=== PATIENT | female | born 1945 | race Caucasian/White ===

== ENCOUNTER 2018-07-28 09:58 | Observation (INO) ==
[2018-07-28] MEDS ORDERED: LACTATED RINGERS 1,000 ML IV ONE (10:11)
[2018-07-28] MEDS ORDERED: ONDANSETRON 4 MG/2 ML VIAL IV ONE (10:11)
--- NOTE | 2018-07-28 10:13 | Emergency Department Note ---
Nausea/Vomiting/Diarrhea HPI - General Chief complaint: Nausea/Vomiting/Diarrhea Stated complaint: n/v/d x 4 days Time Seen by Provider: 07/28/18 10:09 Source: patient Mode of arrival: wheelchair Limitations: no limitations - History of Present Illness HPI Narrative: This patient has problems with chronic diarrhea but is gotten worse recently and is associated with nausea vomiting and abdominal cramping. Imodium is not helping. Diarrhea is watery without blood or mucus. She did have colonoscopy a month ago and had some polyps removed. Her abdominal pain is diffuse and crampy in nature. - Related Data Home Medications Medication Instructions Recorded Confirmed loperamide 2 mg capsule 4 mg PO .COMPLEX PRN cap 02/21/15 07/28/18 loratadine 10 mg tablet 10 mg PO QDAY PRN 02/21/15 07/28/18 acetaminophen ER 650 mg 650 mg PO .COMPLEX PRN tab 04/22/16 07/28/18 tablet,extended release Previous Rx's Medication Instructions Recorded furosemide 20 mg tablet 20 mg PO .QOD #60 tab 12/02/17 lorazepam 0.5 mg tablet 0.5 mg PO QDAY PRN #14 tab 12/23/17 losartan 100 mg tablet 100 mg PO QDAY #90 tab 04/13/18 hydralazine 25 mg tablet 50 mg PO BID #120 tab 06/03/18 metoprolol tartrate 100 mg tablet 100 mg PO BID #90 tab 06/08/18 bupropion HCl XL 300 mg 24 hr 300 mg PO QAM #90 tab 06/16/18 tablet, extended release Allergies Allergy/AdvReac Type Severity Reaction Status Date / Time amlodipine Allergy Unknown Ankle Verified 07/28/18 10:02 Swelling hydrochlorothiazide Allergy Unknown Hyponatremi Verified 07/28/18 10:02 a Review of Systems All systems ED: reviewed and negative except as stated. Past Medical History - Past Medical History PMF Narrative: Medical History (Last Reviewed 06/30/18 @ 10:44 by Jerel Lundy MD) Localized edema due to fluid overload (Chronic) Secondary hyperparathyroidism of renal origin (Chronic) Vitamin D deficiency (Chronic) Benign hypertension with CKD (chronic kidney disease) stage III (Chronic) CKD (chronic kidney disease) stage 3, GFR 30-59 ml/min (Chronic) Urge incontinence (Chronic) Atypical chest pain (Acute) Metabolic acidosis (Chronic) History of colorectal cancer (Chronic) Hypercholesterolemia (Chronic) H/O: hysterectomy (Chronic) Gastroesophageal reflux (Chronic) Kidney stones (Chronic) Anxiety (Chronic) Depression (Chronic) Osteoarthritis (Chronic) Past Surgical History (Last Reviewed 06/30/18 @ 10:44 by Jerel Lundy MD) History of knee replacement (Chronic) History of lumpectomy of left breast (Chronic) History of cholecystectomy (Chronic) Hx of appendectomy (Chronic) History of colon resection (Chronic ~1998) Family History (Last Reviewed 06/30/18 @ 10:44 by Jerel Lundy MD) Grandfather-maternal Arthritis Essential hypertension Cerebrovascular accident (CVA) Tuberculosis Mother Essential hypertension Brothers Essential hypertension Father Alcoholism Hypertension Medical history: Reports: hypertension Surgical history ED: Reports: appendectomy, cholecystectomy, colostomy, hysterectomy, JULIAN/BSO - Social History smoking status: Never smoker Alcohol use: Reports: None Physical Exam Limitations: no limitations General appearance: alert Head: atraumatic Eye: Present: normal appearance ENT: normal exam Neck: Present: normal inspection Chest: Present: normal inspection Respiratory: Present: normal lung sounds bilaterally Cardiovascular: Present: regular rate, normal rhythm, normal heart sounds Abdominal: Present: soft, tenderness. Absent: distention, guarding, rebound Abdominal tenderness: Present: diffuse, mild Neurological: Present: alert Psychiatric: Present: normal affect Skin: Present: warm Course Vital Signs Temperature 97.4 F 07/28/18 09:59 Pulse Rate 110 H 07/28/18 09:59 Respiratory Rate 20 07/28/18 09:59 Blood Pressure 154/108 07/28/18 09:59 Pulse Oximetry (%) 99 07/28/18 09:59 Temperature 97.4 F 07/28/18 09:59 Pulse Rate 80 07/28/18 14:21 Respiratory Rate 20 07/28/18 09:59 Blood Pressure 161/109 07/28/18 14:02 Pulse Oximetry (%) 98 07/28/18 14:21 Nausea/Vomiting/Diarrhea - MDM Narrative Medical decision making narrative: CT shows mechanical partial small bowel obstruction. The patient will be admitted to the hospital by Dr. Pina. - Lab Data Lab results reviewed: Yes I reviewed the patient's lab results. Result diagrams: 07/28/18 10:10 07/28/18 10:10 Lab Results 07/28/18 07/28/18 Range/Units 10:10 10:10 WBC 4.8 (4.5-11.0) K/mcL RBC 4.92 (4.00-5.20) M/mcL Hgb 14.4 (12.0-15.0) g/dL Hct 43.7 (36.0-48.0) % MCV 88.7 (80.0-100.0) fL MCH 29.3 (26.0-34.0) pg MCHC 33.1 (31.0-36.0) g/dL RDW 13.8 (11.5-14.5) % Plt Count 267 (140-440) K/mcL MPV 8.8 (7.4-10.4) fL Gran % 71.0 (38.0-78.0) % Lymph % (Auto) 15.9 (15.5-49.0) % [place] % (Auto) 11.6 (1.0-12.0) % Eos % (Auto) 1.2 (0.0-7.0) % Baso % (Auto) 0.3 (0.0-2.0) % Gran # 3.4 (1.8-8.0) K/mcL Lymph # (Auto) 0.8 L (1.5-4.8) K/mcL [place] # (Auto) 0.6 (0.1-0.9) K/mcL Eos # (Auto) 0.1 (0.0-0.7) K/mcL Baso # (Auto) 0 (0.0-0.3) K/mcL Sodium 136 (133-145) mmol/L Potassium 4.3 (3.3-5.1) mmol/L Chloride 101 (96-108) mmol/L Carbon Dioxide 19 L (22-30) mmol/L Anion Gap 16.0 (8-16) BUN 34 H (8-23) mg/dl Creatinine 1.9 H (0.6-1.1) mg/dl GFR Calculation 26 Glucose 124 H (70-105) mg/dL Calcium 9.8 (8.6-10.4) mg/dl Total Bilirubin 0.5 (0.0-1.0) mg/dL AST 20 (0-37) U/l ALT 34 (0-40) U/l Alkaline Phosphatase 123 H (39-117) U/L Total Protein 7.4 (5.9-8.4) gm/dL Albumin 4.2 (3.2-5.2) gm/dL Globulin 3.2 (2.2-3.7) gm/dL Albumin/Globulin Ratio 1.3 (1.0-2.3) - Radiology Data Radiology results reviewed: Yes I reviewed the patient's radiology results. Disposition Pt seen by HEALTH THERAPIST/PA only: No Clinical Impression: Small bowel obstruction Disposition: Xfer As Outpt/Obs ([facility]) Condition: Good Referrals: Jerel Lundy MD [Primary Care Provider] - Time of Disposition: 15:06
[2018-07-28] MEDS: HYDROmorphone 2 MG/ML VIAL IV PRN ×2 (10:28→14:03)
[2018-07-28 11:06] LABS: Basophils # (Auto) 0 K/mcL (0.0-0.3); Basophils % (Auto) 0.3 % (0.0-2.0); Eosinophils # (Auto) 0.1 K/mcL (0.0-0.7); Eosinophils % (Auto) 1.2 % (0.0-7.0); Lymphocytes # (Auto) 0.8 K/mcL (1.5-4.8); Lymphocytes % (Auto) 15.9 % (15.5-49.0); Mean Cell Volume 88.7 fL (80.0-100.0); Mean Corpuscular HGB Conc 33.1 g/dL (31.0-36.0); Monocytes # (Auto) 0.6 K/mcL (0.1-0.9); Monocytes % (Auto) 11.6 % (1.0-12.0); Platelet Count 267 K/mcL (140-440); RBC 4.92 M/mcL (4.00-5.20); Red Cell Distribution Width 13.8 % (11.5-14.5)
[2018-07-28 11:29] LABS: ALT/SGPT 34 U/l (0-40); Albumin 4.2 gm/dL (3.2-5.2); Albumin/Globulin Ratio 1.3 (1.0-2.3); Alkaline Phosphatase 123 U/L (39-117); Blood Urea Nitrogen 34 mg/dl (8-23)
[2018-07-28] MEDS ORDERED: 0.9 % SODIUM CHLORIDE 1,000 ML IV ONE (11:52)
[2018-07-28] MEDS ORDERED: LORazepam 2 MG/ML VIAL IV ONE (13:52)
--- NOTE | 2018-07-28 14:39 | Cat Scan Report ---
CLINICAL INFORMATION: History of rectal cancer. Previous hysterectomy, cholecystectomy, appendectomy. Abdominal pain. COMPARISON: Previous abdominal MRI scan dated 03/08/2016. Previous CT scans dated 03/16/2014, 10/09/2012, 10/07/2011, 03/13/2011 TECHNIQUE: Axial images were obtained through the abdomen and pelvis. Sagittally and coronally reformatted images. Oral contrast material was administered. Venous contrast material was not given FINDINGS: Partial mechanical small bowel obstruction. Jejunum and a portion of the ileum are dilated. There is a transition point in the right lower quadrant which corresponds in location to an anastomotic suture line and entero-entero anastomosis.. There is mild small bowel feces sign. Small bowel obstruction does not appear complete. There is fecal material and gas within the colon. There is no pneumoperitoneum. No biliary or portal venous gas. No pneumatosis. Stomach is mildly distended and contains contrast material. Lung bases are negative. No focal consolidation. No pleural effusion. No pericardial effusion. Liver is negative for limits of noncontrast enhanced examination. There are surgical clips in the gallbladder fossa. No dilated bile ducts. Pancreas is negative. No pancreatic mass. No peripancreatic abnormality. Spleen is negative. There are calcifications consistent with granulomatous disease. Negative adrenal glands. Kidneys are negative to the limits of noncontrast enhanced examination. No hydronephrosis or hydroureter. No bladder calculus. Uterus is been removed. No adnexal mass. There is no free intraperitoneal fluid. No pneumatosis. No biliary or portal venous gas. There is no pathologic retroperitoneal or mesenteric adenopathy. Abdominal aorta is calcified. No abdominal aortic aneurysm. Celiac trunk and superior mesenteric artery appear normal. There is mild calcification but no evidence for stenosis Lumbar spine is negative. No compression deformities. The common pelvis are negative. IMPRESSION: 1. Findings consistent with partial mechanical small bowel obstruction. Transition point is in the right lower quadrant and appears to correspond in location to an anastomotic suture line within the small bowel. 2. No other acute intra-abdominal abnormality. The exam was performed using radiation dose optimization techniques including, but not limited to, automated exposure control, adjustment of the mA and/or kV according to patient size and use of iterative reconstruction technique. Interpreted and Authenticated by: Jeremy Brower 07/28/18
--- NOTE | 2018-07-28 17:22 | General Surg History&Physical ---
History of Present Illness Patient information: Note initiated : 07/28/18 at 5:19 pm Service Date, if different from initiated Date: [] Patient: Kay Blank 73 y/o F admitted on 07/28/18 for n/v/d x 4 days. Chief Complaint: [] HPI: Ms. Blank is a 73 year old F admitted for treatment of diarrhea with severe nausea and vomiting. The patient states that she has a 5 day history of profuse diarrhea with diarrhea stools up to 10 times per day. 2 days ago she developed nausea and vomiting and had multiple episodes of severe crampy mid abdominal pain followed by nausea and vomiting. The pain nausea and vomiting is worse after meals. Because of episodic diarrhea and prior history of colon rectal cancer She had colonoscopy 3 weeks ago. She reports that she had 6 polyps removed at that time. The patient states that she had colorectal resection for rectal cancer in 2009. She had it a protective ileostomy which was reversed about 4 months later. Since that time she has had periods of episodic diarrhea which she is controlled with when necessary Imodium. She denies fever or chills. She denies rectal bleeding. She does not think that there is a temporal relationship between the also of diarrhea and her colonoscopy. Review of Systems - Constitutional fatigue, malaise, weakness, weight gain - EENT Nose, mouth and throat: no dizziness, no headache(s) - Cardiovascular no chest pain, no claudication, no dyspnea on exertion, no palpatations, no rapid heart rate, no syncope - Respiratory no cough, no wheezing, no snoring, no chest congestion - Gastrointestinal abdominal pain, belching, bloating, cramping, diarrhea, excessive flatus, loose stools, nausea, vomiting - Genitourinary Genitourinary: no dysuria, no urinary frequency, no urinary hesitancy, no urinary incontinence, no urinary urgency - Musculoskeletal abnormal gait, joint swelling, no back pain, no stiffness - Integumentary no pruritus, no rash - Neurological weakness, no abnormal hearing, no dizziness, no headache(s), no syncope, no vertigo - Psychiatric no anxiety, no depression - Endocrine fatigue, no palpitations - Hematologic/Lymphatic no easy bleeding, no easy bruising, no lymphadenopathy - Allergic/Immunologic no tongue swelling, no throat swelling, no uticaria, no wheezing, no lip swelling Past History Past medical history: History of colorectal cancer. Chronic kidney disease. History of recurrent colon polyps. Hypertension. Gastroesophageal reflux disease. Depression Past surgical history: Left total knee arthroplasty 2007 Colorectal resection for rectal cancer 2010 Cholecystectomy. Hysterectomy Appendectomy. Left breast biopsy. Ileostomy closure Past family history: Hypertension and stroke Past social history: Denies tobacco , use denies alcohol use Denies drug use Medications and Allergies Home Medications Medication Instructions Recorded Confirmed Type loperamide 2 mg capsule 4 mg PO .COMPLEX PRN cap 02/21/15 07/28/18 History loratadine 10 mg tablet 10 mg PO QDAY PRN 02/21/15 07/28/18 History acetaminophen ER 650 mg 650 mg PO .COMPLEX PRN tab 04/22/16 07/28/18 History tablet,extended release furosemide 20 mg tablet 20 mg PO .QOD #60 tab 12/02/17 07/28/18 Rx lorazepam 0.5 mg tablet 0.5 mg PO QDAY PRN #14 tab 12/23/17 07/28/18 Rx losartan 100 mg tablet 100 mg PO QDAY #90 tab 04/13/18 07/28/18 Rx hydralazine 25 mg tablet 50 mg PO BID #120 tab 06/03/18 07/28/18 Rx metoprolol tartrate 100 mg tablet 100 mg PO BID #90 tab 06/08/18 07/28/18 Rx bupropion HCl XL 300 mg 24 hr 300 mg PO QAM #90 tab 06/16/18 07/28/18 Rx tablet, extended release Allergies Allergy/AdvReac Type Severity Reaction Status Date / Time amlodipine Allergy Unknown Ankle Verified 07/28/18 10:02 Swelling hydrochlorothiazide Allergy Unknown Hyponatremi Verified 07/28/18 10:02 a Exam Temp Pulse Resp BP Pulse Ox 98.0 F 85 22 146/82 95 07/28/18 16:00 07/28/18 16:00 07/28/18 16:00 07/28/18 16:00 07/28/18 16:00 - General physical appearance well developed, well nourished, no distress - Eyes PERRL, normal ocular movement - ENT normal pinna, normal nares, normal mucosa, no hearing loss, no congestion - Head Head exam IM: Present: atraumatic, normocephalic - Neck no masses, no bruits, trachea midline, no lymphadenopathy, no venous distension - Cardiovascular Cardiovascular exam IM: Present: normal rate and rhythm, JVD, RRR, +S1, +S2. Absent: irregular rhythm, systolic murmur, tachycardia - Respiratory normal expansion, normal respiratory effort, clear to auscultation - Abdomen Abdomen: Present: soft, non tender, tender (mild diffuse midabdominal tenderness; good active bowel sounds; no palpable mass or guarding), bowel sounds Hernia: Present: none - Genitourinary Present: normal external genitalia - Integumentary Present: no rash, no growths, no abnormal pigmentation - Neurologic Present: normal coordination, normal sensation - Musculoskeletal Present: normal gait, normal posture, other (. Operative changes left knee) - Psychiatric Present: oriented to time, oriented to person, oriented to place, speech is normal, memory intact Assessment and Plan (1) Acute infectious diarrhea Patient has associated adynamic ileus rather than intestinal obstruction . Dicyclomine 20 mg 4 times daily stool for C. difficile. Clear liquid diet . Erythrocyte sedimentation rate , Zosyn 3.375 g IV every 6. Hours Status: Acute (2) Acute kidney injury superimposed on chronic kidney disease IV hydration with normal saline Status: Acute (3) Depression Status: Chronic Qualifiers: Depression Type: major depressive disorder Major depression recurrence: recurrent Active/Remission status: in full remission Qualified Code(s): F33.42 - Major depressive disorder, recurrent, in full remission (4) Osteoarthritis Status: Chronic Qualifiers: Osteoarthritis location: unspecified site Osteoarthritis type: unspecified Qualified Code(s): M19.90 - Unspecified osteoarthritis, unspecified site
[2018-07-28] MEDS ORDERED: PROMETHAZINE 25 MG/ML VIAL IV PRN (17:33)
[2018-07-28] MEDS ORDERED: oxyCODONE HCL 5 MG TABLET PO PRN (17:33)
[2018-07-28] MEDS ORDERED: ONDANSETRON 4 MG/2 ML VIAL IV PRN (17:33)
[2018-07-28] MEDS: 0.9 % SODIUM CHLORIDE 1,000 ML IV SCH (18:10)
[2018-07-28] MEDS: metroNIDAZOLE 500 MG/100 ML BAG IV SCH (18:10)
[2018-07-28] MEDS: DICYCLOMINE 20 MG TABLET PO SCH ×2 (18:12→23:48)
[2018-07-28] MEDS: PIPERACILLIN SODIUM/TAZOBACTAM 2.25 GM in DEXTROSE 5% IN WATER 50 ML IV SCH ×2 (19:19→23:48)
[2018-07-28 23:58] LABS: Appearance,Urine HAZY; Bacteria,Urine FEW /hpf (0); Bilirubin,Urine NEG (NEG); Color,Urine YELLOW; Glucose,Urine (UA) NEGATIVE (NEG); Leukocyte Esterase,Urine 250 /uL (NEG); Mucus,Urine MOD /hpf (0); Protein,Urine NEG (NEG); Specific Gravity,Urine 1.019 (1.000-1.035); Urine Blood 0.03 mg/dL (<0.03); Urine RBC 6 /hpf (0-1); Urine Squamous Epithelial Cell 4 /hpf (0-4); Urine WBC 12 /hpf (0-4); Urobilinogen,Urine NEG (NEG)
[2018-07-29] MEDS: 0.9 % SODIUM CHLORIDE 1,000 ML IV SCH ×3 (00:52→16:54)
[2018-07-29] MEDS: metroNIDAZOLE 500 MG/100 ML BAG IV SCH ×3 (00:52→11:58)
[2018-07-29] MEDS: PIPERACILLIN SODIUM/TAZOBACTAM 2.25 GM in DEXTROSE 5% IN WATER 50 ML IV SCH ×4 (04:52→23:22)
--- NOTE | 2018-07-29 06:33 | XRay Report ---
CLINICAL INFORMATION: History of mechanical small bowel obstruction. Follow-up TECHNIQUE: Supine and upright abdomen COMPARISON: Previous CT scan dated 07/28/2018 FINDINGS: Markedly improved bowel gas pattern. There is gas and contrast material within the colon. There is some persistent mildly distended gas-filled small bowel in the left side of the abdomen. There are multiple surgical clips in the right upper quadrant and left upper quadrant. No free intraperitoneal air. No biliary or portal venous gas. No pneumatosis. IMPRESSION: Improved bowel gas pattern with increased gas and contrast material in the colon Interpreted and Authenticated by: Jeremy Brower 07/29/18
[2018-07-29] MEDS: PANTOPRAZOLE 40 MG VIAL IV SCH ×2 (07:42→16:50)
[2018-07-29] MEDS: DICYCLOMINE 20 MG TABLET PO SCH ×4 (09:25→20:50)
[2018-07-29] MEDS ORDERED: hydrALAZINE 25 MG TABLET PO SCH ×2 (11:42→21:00)
[2018-07-29] MEDS ORDERED: LOSARTAN 50 MG TABLET PO SCH (11:45)
[2018-07-29] MEDS: METOPROLOL TARTRATE 50 MG TABLET PO SCH ×2 (11:57→20:49)
--- NOTE | 2018-07-29 13:00 | General Surgery Progress Note ---
Subjective Patient reports: feels better, pain is less, tolerating liquids well, flatus, bowel movement, diarrhea, afebrile Narrative: Note initiated : 07/29/18 at 12:57 pm Service Date, if different from initiated Date: [] Patient: Kay Blank 73 y/o F admitted on 07/28/18 for n/v/d x 4 days. Chief Complaint: [patient is improved. She has had some somatoform bowel movements. She has less abdominal distention. She has good active bowel sounds.C. difficile is negative; fecal leukocytes are negative.] Objective Temp Pulse Resp BP Pulse Ox 97.7 F 86 18 165/95 97 07/29/18 11:34 07/29/18 11:34 07/29/18 11:34 07/29/18 11:34 07/29/18 11:34 - Additional Data Intake & Output - Last 24 hours: Intake & Output 07/27/18 07/28/18 07/29/18 07/30/18 05:59 05:59 05:59 05:59 Intake Total 2550 100 Output Total 625 500 Balance 1925 -400 Weight 289 lb 12.8 oz - General physical appearance well developed, well nourished, no distress - Eyes PERRL, normal ocular movement - ENT normal pinna, normal nares, normal mucosa, no hearing loss, no congestion - Neck no masses, no bruits, trachea midline, no lymphadenopathy, no venous distension - Respiratory normal expansion, normal respiratory effort, clear to auscultation - Cardiovascular Cardiovascular exam: Present: normal rate and rhythm, RRR, +S1, +S2. Absent: tachycardia - Abdomen non tender, bowel sounds (good active bowel sounds; no significant tenderness; no distention noted.), surgical scars (none), masses (none) - Integumentary no rash, no growths, no abnormal pigmentation - Neurologic normal coordination, normal sensation - Musculoskeletal normal gait, normal posture - Psychiatric oriented to time, oriented to person, oriented to place, speech is normal, memory intact - Labs 07/28/18 10:10 07/28/18 10:10 Assessment and Plan (1) Acute infectious diarrhea Status: Acute Assessment and plan: Discontinue antibiotics. Soft diet. Follow-up abdominal x-rays in the morning Current Visit: Yes (2) Acute kidney injury superimposed on chronic kidney disease Status: Resolved Assessment and plan: Check the chem panel in the morning Current Visit: Yes (3) Depression Status: Chronic Assessment and plan: Restart oral medications Current Visit: No (4) Osteoarthritis Status: Chronic Current Visit: No - Time Spent With Patient Total time spent is greater than 50% in coordination of care (as documented) at patient's floor/unit and/or counseling patient:
[2018-07-29] MEDS ORDERED: LORazepam 0.5 MG TABLET PO PRN (13:07)
[2018-07-29] MEDS ORDERED: LORATADINE 10 MG TABLET PO PRN (13:07)
[2018-07-29] MEDS: hydrALAZINE 25 MG TABLET PO SCH (20:50)
[2018-07-29] MEDS ORDERED: METOPROLOL TARTRATE 100 MG PO SCH (21:00)
[2018-07-29] MEDS ORDERED: METOPROLOL TARTRATE 50 MG TABLET PO SCH (21:00)
[2018-07-30] MEDS: 0.9 % SODIUM CHLORIDE 1,000 ML IV SCH ×2 (00:35→05:31)
[2018-07-30] MEDS: PIPERACILLIN SODIUM/TAZOBACTAM 2.25 GM in DEXTROSE 5% IN WATER 50 ML IV SCH ×2 (05:31→13:49)
[2018-07-30 06:07] LABS: Basophils # (Auto) 0 K/mcL (0.0-0.3); Basophils % (Auto) 0.5 % (0.0-2.0); Eosinophils # (Auto) 0.1 K/mcL (0.0-0.7); Eosinophils % (Auto) 3.1 % (0.0-7.0); Granulocytes % (Auto) 66.1 % (38.0-78.0); Lymphocytes # (Auto) 0.9 K/mcL (1.5-4.8); Mean Cell Volume 90.6 fL (80.0-100.0); Mean Corpuscular HGB Conc 33.1 g/dL (31.0-36.0); Monocytes # (Auto) 0.5 K/mcL (0.1-0.9); Monocytes % (Auto) 10.3 % (1.0-12.0); Platelet Count 185 K/mcL (140-440); RBC 3.98 M/mcL (4.00-5.20); Red Cell Distribution Width 13.9 % (11.5-14.5)
[2018-07-30 06:15] LABS: ALT/SGPT 37 U/l (0-40); Albumin 3.4 gm/dL (3.2-5.2); Albumin/Globulin Ratio 1.4 (1.0-2.3); Alkaline Phosphatase 96 U/L (39-117); Bilirubin,Direct < 0.2 mg/dL (0.0-0.3); Blood Urea Nitrogen 15 mg/dl (8-23); Gamma Glutamyl Transpeptidase 45 U/L (5-36); Uric Acid 5.7 mg/dL (2.5-8.0)
[2018-07-30] MEDS: PANTOPRAZOLE 40 MG VIAL IV SCH (07:08)
--- NOTE | 2018-07-30 07:44 | XRay Report ---
CLINICAL INFORMATION: History of partial mechanical small bowel obstruction TECHNIQUE: Supine and upright abdomen COMPARISON: Previous CT scan dated 07/28/2018. Previous plain film examination dated 07/29/2018 FINDINGS: Gas within the colon. Nondilated gas filled small bowel. No evidence for obstruction. Bowel gas pattern is unremarkable. There are surgical clips in the right upper abdominal quadrant. There are also surgical clips in the left upper quadrant. No pneumoperitoneum. No biliary or portal venous gas. No pneumatosis. IMPRESSION: 1. Unremarkable and nonobstructive bowel gas pattern 2. Interval improvement since 07/28/2018 Interpreted and Authenticated by: Jeremy Brwoer 07/30/18
[2018-07-30] MEDS ORDERED: NEUTRA PHOS 1 PACKET PO ONE (08:42)
[2018-07-30] MEDS: METOPROLOL TARTRATE 50 MG TABLET PO SCH (08:43)
[2018-07-30] MEDS: DICYCLOMINE 20 MG TABLET PO SCH ×2 (08:43→13:48)
[2018-07-30] MEDS: hydrALAZINE 25 MG TABLET PO SCH (08:43)
[2018-07-30] MEDS ORDERED: buPROPion 150 MG TAB.XL.24H PO SCH (09:00)
[2018-07-30] MEDS ORDERED: LOSARTAN 50 MG TABLET PO SCH ×2 (09:00)
[2018-07-30] MEDS ORDERED: buPROPion 300 MG TAB.XL.24H PO SCH (09:00)
--- NOTE | 2018-07-30 15:12 | Discharge Summary ---
Providers - Providers Patient information: Note initiated : 07/30/18 at 3:11 pm Service Date, if different from initiated Date: [] Patient: Kay Blank 73 y/o F admitted on 07/28/18 for n/v/d x 4 days. Chief Complaint: [] Date of admission: 07/28/18 Discharge date: 07/30/18 Attending physician: Steffen Pina Hospitalization Hospital course: 73-year-old female admitted for treatment of severe nausea, vomiting, diarrhea. She presented with a five-day history of present profuse diarrhea with up to 12 diarrheal stools per day. 2 days prior to admission she developed nausea and vomiting and had multiple recurrent episodes of severe crampy mid abdominal pain followed by nausea, vomiting and diarrhea. Her nausea and vomiting became worse after meals. She has had episodic diarrhea in the past had a colonoscopy 3 weeks prior to admission and that was unremarkable except for small polyps. She has a history of rectal cancer status post chemoradiation and resection without any difficulty. Patient presented with evidence of acute kidney injury with BUN of 34 and creatinine 1.9. She was started on dicyclomine 20 mg 4 times daily. Stool for C. difficile was negative.her BUN and creatinine returned to normal with hydration. Her diet was advanced and she had semisolid stools without diarrhea. Her abdominal crampy pain resolved. She has clinically stable at this time and is discharged home. Discharge diagnosis: acute noninfectious diarrhea Secondary discharge diagnosis: Acute on chronic renal failure. Chronic depression. Osteoarthritis. Hypertension Reason for admission: uncontrolled diarrhea and dehydration Procedures: None Pertinent studies/significant findings: CT of abdomen and pelvis without contrast Complications: None Exam Temp Pulse Resp BP Pulse Ox 98.6 F 76 18 192/89 95 07/30/18 11:16 07/30/18 11:16 07/30/18 11:16 07/30/18 11:16 07/30/18 11:16 - General physical appearance well developed, well nourished, no distress - Eyes PERRL, normal ocular movement - ENT normal pinna, normal nares, normal mucosa, no hearing loss, no congestion - Head Head exam IM: Present: atraumatic, normocephalic - Neck no masses, no bruits, trachea midline, no lymphadenopathy, no venous distension - Cardiovascular Cardiovascular exam IM: Present: normal rate and rhythm - Respiratory normal expansion, normal respiratory effort, clear to percussion, clear to a uscultation - Abdomen Abdomen: Present: soft, non tender, bowel sounds. Absent: masses, distended Hernia: Present: none - Genitourinary Present: normal external genitalia - Integumentary Present: no rash, no growths, no abnormal pigmentation - Neurologic Present: normal coordination, normal sensation - Musculoskeletal Present: normal gait, normal posture - Psychiatric Present: oriented to time, oriented to person, oriented to place, speech is normal, memory intact Discharge Plan - Patient/Caregiver Discharge Instructions Activity: increase activity as tolerated Diet: Regular Diet Additional Instructions: Multiple small meals per day Prescriptions: RX: Dicyclomine 20 mg PO QID #60 tab - Follow up Plan Follow up with: Jerel Lundy MD [Primary Care Provider] - Disposition: Home, Self-Care Prognosis: Good Rehab Potential: Good (she is supported) I certify that the patient requires SNF services.: No Overall status at discharge: patient is progressing back to baseline Pending Studies Resuscitation Status Full Code Diet GI Soft/Transitional Start FriJuly 29 1307 Bupropion HCl (Wellbutrin Xl) 300 mg PO DAILY [facility] Last Admin: 07/30/18 08:43 Dose: 300 mg Documented by: Srinivas Dicyclomine HCl (Dicyclomine) 20 mg PO QID [facility] Admin: 07/30/18 13:48 Dose: 20 mg Documented by: Srinivas Admin: 07/30/18 08:43 Dose: 20 mg Documented by: Admin: 07/29/18 20:50 Dose: 20 mg Documented by: Admin: 07/29/18 16:51 Dose: 20 mg Documented by: Admin: 07/29/18 13:20 Dose: 20 mg Documented by: Srinivas Admin: 07/29/18 09:25 Dose: 20 mg Documented by: JEFFRY Canigned by: Srinivas Admin: 07/28/18 23:48 Dose: 20 mg Documented by: Admin: 07/28/18 18:12 Dose: 20 mg Documented by: ASYA Hydralazine HCl (Apresoline) 50 mg PO BID [facility] Last Admin: 07/30/18 08:43 Dose: 50 mg Documented by: Srinivas Admin: 07/29/18 20:50 Dose: 50 mg Documented by: CONCHA Piperacillin Sod/Tazobactam (Sod 2.25 gm/ Dextrose) 50 mls @ 100 mls/hr IV Q6H [facility]; Protocol Last Admin: 07/30/18 13:49 Dose: Not Given Documented by: Infusion: 07/30/18 06:01 Dose: 0 mls/hr Documented by: Admin: 07/30/18 05:31 Dose: 100 mls/hr Documented by: Infusion: 07/29/18 23:52 Dose: 100 mls/hr Documented by: Admin: 07/29/18 23:22 Dose: 100 mls/hr Documented by: Infusion: 07/29/18 20:50 Dose: 0 mls/hr Documented by: Admin: 07/29/18 17:45 Dose: 100 mls/hr Documented by: Infusion: 07/29/18 12:15 Dose: 0 mls/hr Documented by: Admin: 07/29/18 11:27 Dose: 100 mls/hr Documented by: JEFFRY Cosigned by: KAREN Infusion: 07/29/18 05:22 Dose: 100 mls/hr Documented by: JEFFYR Cosigned by: Srinivas Admin: 07/29/18 04:52 Dose: 100 mls/hr Documented by: Infusion: 07/29/18 00:18 Dose: 100 mls/hr Documented by: Admin: 07/28/18 23:48 Dose: 100 mls/hr Documented by: Infusion: 07/28/18 19:49 Dose: 100 mls/hr Documented by: Admin: 07/28/18 19:19 Dose: 100 mls/hr Documented by: RUTH Losartan Potassium (Cozaar) 100 mg PO QDAY [facility] Last Admin: 07/30/18 08:42 Dose: 100 mg Documented by: KAREN Metoprolol Tartrate (Lopressor) 100 mg PO BID [facility] Last Admin: 07/30/18 08:43 Dose: 100 mg Documented by: Admin: 07/29/18 20:49 Dose: 100 mg Documented by: Admin: 07/29/18 11:57 Dose: 100 mg Documented by: JEFFRY Cosigned by: Srinivas Pantoprazole Sodium (Protonix) 40 mg IV BIDAC [facility] Last Admin: 07/30/18 07:08 Dose: 40 mg Documented by: Admin: 07/29/18 16:50 Dose: 40 mg Documented by: Admin: 07/29/18 07:42 Dose: 40 mg Documented by: JEFFRY Cosigned by: KAREN Shift Summary 07/30/18 04:50 Shift Summary by Ashley Bass Patient alert and oriented x4. Denies any pain. Patient easily fatigued when going to the bathroom. Tolerating diet. IVF NS@150 infusing well on left hand. Up with SBA to the bathroom, steady on her feet. Had some soft loose stool this AM x1. For abdominal xray in AM. Abdominal folds getting moist and red. Applied anti-fungal powder. BP 190's/96 mmHg was taken after pt got back from the [place]. Latest BP 143/74 mmHg this AM. Afebrile. Initialized on 07/30/18 04:50 - END OF NOTE
== END 2018-07-30 15:50 | disposition home or self-care (01) ==
LOC: ED 09:58 → MEDSUR 09:58
PROVIDERS: ADMIT Family Medicine Adult Medicine; ATTEND Family Medicine Adult Medicine